=== PATIENT | female | born 1960 | race American Indian/Alaskan Native ===

== ENCOUNTER 2020-07-10 09:23 | Day surgery (SDC) | payer MEDICARE ==
[2020-07-10] MEDS ORDERED: SODIUM CHLORIDE 0.9% 500 ML 500 ML IV SCH (10:00)
[2020-07-10 10:51] LABS: Hematocrit 34.9 % (30.3-42.9); Hemoglobin 11.1 gm/dl (10.1-14.3); Mean Corpuscular HGB Conc 32 % (30-34); Mean Corpuscular Volume 95 fl (79-97); Platelet Count 184 K/mm3 (140-440); Red Blood Count 3.68 M/mm3 (3.65-5.03); Red Cell Distribution Width 15.1 % (13.2-15.2)
[2020-07-10 11:01] LABS: INR 1.61 (0.87-1.13)
[2020-07-10 11:02] LABS: Partial Thromboplastin Time 35.7 Sec. (24.2-36.6)
[2020-07-10 11:06] LABS: Calcium 9.1 mg/dL (8.4-10.2)
[2020-07-10] MEDS ORDERED: DEXTROSE 50% IN WATER (25GM) 50 ML SYRINGE IV SCH (14:30)
[2020-07-10] MEDS ORDERED: MIDAZOLAM 2 MG/2 ML INJ ONE (14:34)
[2020-07-10] MEDS ORDERED: fentaNYL 100 MCG/2 ML INJ ONE (14:35)
[2020-07-10] MEDS ORDERED: LIDOCAINE (2%) 20 MG/1 ML VIAL 20 ML MDV INFILTRATI ONE ×2 (14:37→15:19)
[2020-07-10] MEDS ORDERED: HEPARIN 10,000 UNITS/10 ML VIAL ONE (14:37)
[2020-07-10] MEDS ORDERED: DEXTROSE 50% IN WATER (25GM) 50 ML SYRINGE IV ONE (14:42)
[2020-07-10] MEDS ORDERED: HEPARIN/NS 5000 UNIT/500ML 1,000 ML IR ONE (14:42)
--- NOTE | 2020-07-10 16:18 | Short Stay Summary ---
Short Stay Documentation Date of service: 07/10/20 Narrative H&P: See H&P - History H&P: obtained from office - Allergies and Medications Current Medications: Allergies No Known Allergies Allergy (Unverified 07/10/20 09:50) Home Medications Medication Instructions Recorded Confirmed Last Taken Type Amitriptyline [Elavil] 25 mg PO QHS 07/10/20 07/10/20 07/09/20 History 25 mg Budesonide Micronized 0.25 mg INHALATION DAILY 07/10/20 07/10/20 07/09/20 History 0.25mg Bumetanide [Bumex 1 mg tab] 1 tab PO DAILY PRN 07/10/20 07/10/20 Unknown History Eliquis 5 mg PO BID 07/10/20 07/10/20 07/09/20 History 5 mg Famotidine [Acid-Pep] 20 mg PO QHS 07/10/20 07/10/20 07/09/20 History 20 mg Ferrous Sulfate [Iron 325 MG] 325 mg PO DAILY 07/10/20 07/10/20 07/09/20 History 325 mg Insulin Detemir [Levemir Flextouch] 10 units SC QHS 07/10/20 07/10/20 07/09/20 History 10 units Ipratropium/Albuter (Nf) 2 puff INHALATION Q6HR PRN 07/10/20 07/10/20 Unknown History [Combivent Inhaler] Pravastatin Sodium [Pravastatin] 10 mg PO QHS 07/10/20 07/10/20 07/09/20 History 10 mg Pregabalin [Lyrica] 150 mg PO DAILY 07/10/20 07/10/20 07/09/20 History 150 mg amLODIPine 2.5 mg PO DAILY 07/10/20 07/10/20 07/09/20 History 2.5mg guaiFENesin/DEXTROMETHORPHAN 5 mg PO Q4HR PRN 07/10/20 07/10/20 Unknown History Active Medications Sodium Chloride (Nacl 0.9% 500 Ml) 500 mls @ 50 mls/hr IV DIRECT HEMANT - Brief post op/procedure progress note Date of procedure: 07/10/20 Pre-op diagnosis: 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 Ultrasound-Guided Access Left Femoral Vein 2. Diagnostic Left Lower Extremity Venogram 3. Intravascular Ultrasound of Left Common Iliac Vein with [place] Visions PV 0.035 Catheter 4. Intravascular Ultrasound of Left External Iliac Vein with [place] Visions PV 0.035 Catheter 5. Intravascular Ultrasound of Left Common Femoral vein with [place] Visions PV 0.035 Catheter 6. Angioplasty and Stent of Left Common Iliac Vein with 16 x 160 Venovo Stent and 16 x 40 [place] Balloon 7. Radiologic Supervision with Interpretation 8. Monitored Moderate Sedation (Total Anesthesia Time: 50 Minutes) Anesthesia: local, other (Monitored Moderate Sedation) Surgeon: GEETHA ZAPATA Estimated blood loss: minimal Pathology: none Condition: stable - Disposition Condition at discharge: Good Disposition: [id number]-01 TO HOME OR SELFCARE Short Stay Discharge Plan Activity: other (No strenuous activity for 24 hours) Wound: remove dressing (24-hour), other (Okay to wash the wound with soap and water but do not soak in water for 1 week) Follow up with: GEETHA ZAPATA MD [Staff Physician] - 14 Days Prescriptions: HYDROcodone/APAP 7.5-325 [[place] 7.5/325] 1 each PO Q6HR PRN #30 tablet PRN Reason: Pain
--- NOTE | 2020-07-10 16:36 | Operative Report ---
Operative Report Operative Report: Date of Procedure: 07/10/2020 Pre-operative Diagnosis: History of May Thurner With Previous Stenting and Recur rent DVT Post-operative Diagnosis: Same Procedure(s): 1. Ultrasound-Guided Access Left Femoral Vein 2. Diagnostic Left Lower Extremity Venogram 3. Intravascular Ultrasound of Left Common Iliac Vein with [place] Visions PV 0.035 Catheter 4. Intravascular Ultrasound of Left External Iliac Vein with [place] Visions PV 0.035 Catheter 5. Intravascular Ultrasound of Left Common Femoral vein with [place] Visions PV 0.035 Catheter 6. Angioplasty and Stent of Left Common Iliac Vein with 16 x 160 Venovo Stent and 16 x 40 [place] Balloon 7. Radiologic Supervision with Interpretation 8. Monitored Moderate Sedation (Total Anesthesia Time: 50 Minutes) Surgeon: Vikram Rowe M.D. 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 She presented to the office with complaints of a DVT that had occurred in March 2020 despite being on anticoagulation. She also complains of severe swelling of the left lower extremity that was not improving. She is in need of a diagnostic venogram with possible intervention. She was given the risk, benefits, and alternative procedures and consented to the procedure. Venogram Findings: The diagnostic venogram revealed that the femoral vein was patent without evidence of thrombus or flow-limiting stenosis. The common femoral vein had evidence of synechiae and collaterals however there was no obvious thrombus or flow-limiting stenosis. The stent within the external iliac vein was patent without obvious evidence of flow-limiting stenosis or thrombus however it had become disconnected from the stent within the common iliac vein. The stent within the common iliac vein was patent without evidence of thrombus or flow- limiting stenosis and again was dislodged from the stent within the external iliac vein. The inferior vena cava was patent with an indwelling IVC filter that appeared to be patent without evidence of thrombus. Intravascular ultrasound of the external iliac vein revealed that the stent was just at the confluence of the left iliac vein however it had likely migrated distally. There was no significant diameter reduction within the stent. At the distal common iliac vein there was approximately 70% reduction of the lumen between the disconnect of the 2 previously placed stents. The stent within the external iliac vein appeared to be patent without significant diameter reduction. The stent within the common femoral vein appeared to be patent without evidence of diameter reduction however there was evidence of chronic DVT with likely synechiae at the distal stent and mid common femoral vein. At the completion of the case there was brisk flow of contrast throughout the mid common femoral vein, external iliac vein, and common iliac vein without significant flow-limiting reduction. There was no evidence of thrombus or residual synechiae in the mid common femoral vein. Description of Procedure: The patient was brought to the Administrative Associate and laid in supine position. After a timeout was performed her bilateral groins and thighs were prepped and draped in normal sterile fashion. Ultrasound was used to identify the femoral vein in the mid left thigh and confirm patency. Once patency was confirmed the overlying skin and soft tissue was anesthetized with lidocaine. An 11 blade was used to make a small stab incision and then a 21-gauge micropuncture needle was used ultrasound guidance to the left femoral vein. A 0.018 micropuncture wire was advanced to the vein and after removing the needle a micropuncture sheath was placed by Seldinger technique. The inner cannula and wire were removed and a 0.035 advantage wire was advanced into the vein. The micropuncture sheath was removed and a 5 [place] sheath was placed by Seldinger technique. A diagnostic venogram was then performed with the previously described findings. I advanced the advantage wire through the previously placed stents and into the inferior vena cava. Once I have performed the diagnostic venogram I exchanged the 5 [place] sheath for a 10 [place] sheath and then performed intravascular ultrasound of the common iliac vein, external iliac vein, and common femoral vein using the PVPower PV 0.035 Catheter. I decided to reline the previously placed stents using a 16 x 160 Venovo Stent. I advanced the stent into the IVC, flowered the stent and then pulled it back to the confluence and deployed the stent with the distal and landing in the mid common femoral vein. I then used a 16 x 40 [place] Balloon to post dilate the stent in the area that the 2 previous stents had become disconnected. There was an obvious waist on the balloon and an obvious change in the confirmation of the stent once the balloon had been brought to profile. The final venogram revealed brisk flow of contrast throughout the left lower extremity. The synechiae that had previously been noted within the mid common femoral vein was no longer noticed. At this point the wire was removed and the 10 [place] sheath was removed. Manual pressure was used to achieve hemostasis and a sterile dressing was then applied to the entry site. The patient was then transported to the recovery area in stable condition.
[2020-07-10 17:17] VITALS: BP 147/67
== END 2020-07-10 18:10 | disposition home or self-care (01) ==
LOC: CATHLABREC 09:23 → EDSEX 13:00 → CATHLABREC 18:10
PROVIDERS: ATTEND Surgery Vascular Surgery
DX: I82.492 Acute embolism and thrombosis of other specified deep vein of left lower extremity (principal); I11.0 Hypertensive heart disease with heart failure; I50.9 Heart failure, unspecified; E78.00 Pure hypercholesterolemia, unspecified; J44.9 Chronic obstructive pulmonary disease, unspecified; G47.30 Sleep apnea, unspecified; M19.90 Unspecified osteoarthritis, unspecified site; E66.9 Obesity, unspecified; F32.9 Major depressive disorder, single episode, unspecified; Z98.890 Other specified postprocedural states; Z68.41 Body mass index [BMI] 40.0-44.9, adult; Z90.49 Acquired absence of other specified parts of digestive tract; Z79.899 Other long term (current) drug therapy; Z98.41 Cataract extraction status, right eye; Z98.42 Cataract extraction status, left eye; Z86.73 Personal history of transient ischemic attack (TIA), and cerebral infarction without residual deficits
CPT/HCPCS: 36415; 37238; 37252; 37253; 75820; 80048; 82962; 85027; 85610; 85730; 99156; 99157; C1725; C1753; C1769; C1876; C1894; J1644; J2250; J3010; J7040; 96374; Q9967